=== PATIENT | female | born 1960 | race Hispanic/Latino ===

== ENCOUNTER 2023-01-03 18:03 | Emergency (ER) | payer BC, OTHER ==
[~2023-01-03] VITALS: Ht 154.9 cm; Wt 78.0 kg
[2023-01-03] MEDS ORDERED: INSULIN REGULAR, HUMAN 100 UNIT/1 ML SQ ONE (19:45)
[2023-01-03] MEDS ORDERED: INSULIN REGULAR, HUMAN 100 UNIT/1 ML ONE (19:45)
[2023-01-03 19:57] VITALS: BP 148/82
== END 2023-01-03 19:58 | disposition home or self-care (01) ==
LOC: FSED 18:16
DX: R53.1 Weakness (principal); I10 Essential (primary) hypertension; E11.65 Type 2 diabetes mellitus with hyperglycemia
CPT/HCPCS: 36415; 82948; 99283